=== PATIENT | female | born 1995 | race Caucasian/White ===

== ENCOUNTER 2016-09-04 20:09 | Emergency (ER) | payer OTHER ==
[~2016-09-04] VITALS: Ht 157.5 cm; Wt 66.0 kg
[2016-09-04 20:48] VITALS: Ht 157.5 cm; Wt 66.0 kg
[2016-09-04] MEDS ORDERED: ACETAMINOPHEN 325 MG TAB PO ONE (21:30)
--- NOTE | 2016-09-04 21:33 | ERD ---
ER Documentation Chief Complaint Date/Time DATE: 09/04/16 TIME: 21:27 Chief Complaint Stiff neck x3 days HPI 21-year-old healthy female presents with chief complaint of constant neck stiffness 3 days. She has associated discomfort with turning her neck to the right side, and noticed a sore throat today. She denies decreased range of motion, difficulty swallowing, drooling, shortness of breath, fever, cough, and trauma. She took Advil earlier this morning, without relief. She denies sick contacts or recent travel. ROS All systems reviewed and are negative except as per history of present illness. Medications Home Meds Active Scripts Acetaminophen* (Tylenol*) 325 Mg Tablet, 2 TAB PO Q6 Y for PAIN AND OR ELEVATED TEMP, #20 TAB Prov:Katie Palomo PA-C 09/04/16 Ibuprofen* (Motrin*) 600 Mg Tab, 600 MG PO Q6, #30 TAB Prov:Katie Palomo PA-C 09/04/16 Allergies Allergies: Coded Allergies: No Known Allergy (Unverified , 09/04/16) PMhx/Soc Medical and Surgical Hx: pt denies Medical Hx, pt denies Surgical Hx Hx Alcohol Use: No Hx Substance Use: No Hx Tobacco Use: No Smoking Status: Never smoker Physical Exam Vitals Vital Signs Date Time Temp Pulse Resp B/P Pulse Ox O2 Delivery O2 Flow Rate FiO2 09/04/16 20:48 100.2 112 18 134/83 100 Physical Exam GENERAL: Non-toxic. No apparent signs of distress. HEENT: Atraumatic. Bilateral eyes are PERRL EOM intact. Normal conjunctiva, no injection. No eyelid or lower eyelid swelling noted. Ears: Normal tympanic membrane, no erythema or bulging. No ear canal swelling. No ear discharge. Nose : no nasal discharge. Throat: Oropharynx normal. Tongue pink and moist. No tonsillar swelling or tonsillar exudates. No pooling of secretions. Uvula is midline. No trismus. No lymphadenopathy. NECK: No lymphadenopathy, no swelling, no meningismus LUNGS: Clear to auscultation. No accessory muscle use. No wheezing, no crackles. No signs or symptoms of respiratory distress. HEART: Regular rate and rhythm. No murmurs, clicks, rubs or gallops. BACK: No midline tenderness, no costovertebral tenderness. EXTREMITIES: No peripheral cyanosis or edema. No focal pain or notable trauma. Full range of motion. Good capillary refill. NEURO: The patient moves all 4 extremities with 5/5 strength. Cranial nerves are grossly intact. Normal mental status for age. Good muscle tone. SKIN: There is no apparent rash, petechiae, erythema or swelling. Good skin turgor. Results 24 hrs Current Medications Medications (Trade) Dose Ordered Sig/Cait Route PRN Reason Start Time Stop Time Status Last Admin Dose Admin Acetaminophen (Tylenol Tab) 650 mg ONCE ONCE PO 09/04/16 21:30 09/04/16 21:31 DC 09/04/16 21:50 Procedures/MDM Patient presented with complaint of neck stiffness only on her right side, she denied fever however her temp in triage was recorded as 100.2. She notes associated symptoms of sore throat that began earlier today. On exam she has no signs of meningismus, she appears in no acute distress, she has no other medical problems. She denies sick contacts or recent travel. She denies recent trauma. She has full range of motion in her neck. At this time I suspicion for meningitis is low, given the patient's physical and past medical history. However I ordered a rapid strep and influenza to rule these out as a cause of fever, which may be related or unrelated to her neck discomfort. On exam she had mild tonsillar erythema with no edema or exudate, she has no pooling of secretions or trismus. Uvula is midline. Patient given Tylenol for low-grade fever. Awaiting results of workup prior to further management. Rapid strep: Negative Influenza a and B: Negative Workup to results to patient, there is no need for antibiotics or antiviral treatment at this time. I explained that symptoms are likely due to musculoskeletal etiology. It is reassuring that she has no meningismus, has full range of motion in her neck, and only has pain with moving neck to the right side. Symptoms may be due to muscle strain as suggested use of NSAIDs and alternating between ice and heat packs. Sore throat and fever are likely unrelated to her neck pain, she may be showing early signs of viral pharyngitis due to tonsillar erythema. I suggested warm salt water gargles. I prescribed her Motrin and Tylenol. At this time of low suspicion for sepsis, meningitis, peritonsillar abscess, retropharyngeal abscess, strep pharyngitis, cervical fracture, and cord compression. Patient stable for discharge and outpatient management. Advised to follow-up with her PCP in 1-2 days. Departure Diagnosis: Primary Impression: Neck pain Additional Impression: Pharyngitis Pharyngitis/tonsillitis etiology: unspecified etiology Qualified Code: J02.9 - Pharyngitis, unspecified etiology Condition: Katie Flaherty PA-C Sep 04, 2016 21:33
[2016-09-04] MEDS ORDERED: IBUP-1542 PO (23:31)
[2016-09-04] MEDS ORDERED: ACET325T33 PO (23:31)
== END 2016-09-04 23:47 | disposition home or self-care (01) ==
LOC: FTE 20:09
DX: M54.2 Cervicalgia (principal); J02.9 Acute pharyngitis, unspecified
CPT/HCPCS: 87400; 87880; Z7610; 99283

== ENCOUNTER 2016-09-07 19:02 | Emergency (ER) | payer OTHER ==
[~2016-09-07] VITALS: Ht 157.5 cm; Wt 66.0 kg
[~2016-09-07 19:02] MED LIST: ACET325T33 PO; IBUP-1542 PO
[2016-09-07 19:16] VITALS: Ht 157.5 cm; Wt 66.0 kg
[2016-09-07] MEDS ORDERED: AMO500 PO (20:09)
[2016-09-07] MEDS ORDERED: ACET500C5 PO (20:09)
[2016-09-07] MEDS ORDERED: NPH10OT LEFT EAR (20:09)
--- NOTE | 2016-09-07 20:16 | ERD ---
ER Documentation Chief Complaint Date/Time DATE: 09/07/16 TIME: 20:13 Chief Complaint left ear pain x last night HPI 21-year-old female with a past medical history of recurrent ear infections presents to the ED complaining of left ear pain that started earlier today. Denies any use of Q-tips. States that she has been having a dry cough since 3 days ago. Denies any neck stiffness, neck pain, dysphagia, abdominal pain, nausea, vomiting, diarrhea, rashes, chest pain, wheezing, shortness of breath. Denies any recent traveling. Denies any recent swimming. ROS All systems reviewed and are negative except as per history of present illness. Medications Home Meds Active Scripts Neomycin/Polymyxin/Hydrocort* (Cortisporin* Otic) 10 Ml Susp, 4 DROP LEFT EAR QID for 7 Days, EA Prov:ANNETTE ROMANO PA-C 09/07/16 Acetaminophen* (Tylophen*) 500 Mg Capsule, 1 CAP PO Q6H Y for PAIN AND OR ELEVATED TEMP, #20 CAP Prov:ANNETTE ROMANO PA-C 09/07/16 Amoxicillin* (Amoxicillin*) 500 Mg Cap, 500 MG PO TID for 7 Days, CAP Prov:ANNETTE ROMANO PA-C 09/07/16 Acetaminophen* (Tylenol*) 325 Mg Tablet, 2 TAB PO Q6 Y for PAIN AND OR ELEVATED TEMP, #20 TAB Prov:Katie Palomo PA-C 09/04/16 Ibuprofen* (Motrin*) 600 Mg Tab, 600 MG PO Q6, #30 TAB Prov:Katie Palomo PA-C 09/04/16 Allergies Allergies: Coded Allergies: No Known Allergy (Unverified , 09/04/16) PMhx/Soc History of Surgery: No Anesthesia Reaction: No Hx Respiratory Disorders: No Hx Psychiatric Problems: No Hx Miscellaneous Medical Probl: No Hx Alcohol Use: No Hx Substance Use: No Hx Tobacco Use: No Smoking Status: Never smoker Physical Exam Vitals Vital Signs Date Time Temp Pulse Resp B/P Pulse Ox O2 Delivery O2 Flow Rate FiO2 09/07/16 19:16 97.6 93 18 129/82 98 Physical Exam Const: [id number], well-nourished. In no acute distress. Head: Atraumatic, normocephalic Eyes: Normal Conjunctiva without injection. No purulent discharge. PERRL. EOMI ENT: Normal external ear. Left tympanic membrane membrane with erythema and decreased light reflex. Tenderness palpation of the left tragus. No tenderness to palpation of the mastoid. Right tympanic membrane pearly priest without effusion or bulging. Nasal canal clear with normal turbinates. Moist oropharynx without tonsillar exudates. Non-erythematous pharynx. Uvula midline. No drooling. No trismus. Neck: Full range of motion. No meningismus. No cervical lymphadenopathy. Resp: Clear to auscultation bilaterally. No wheezing, rhonchi, rales, or crackles. No accessory muscle use. No retractions. Cardio: Regular rate and rhythm. No murmurs, rubs or gallops. Abd: Soft, non tender, non distended. Normal bowel sounds. No palpable masses. No rebound tenderness. No guarding. Skin: No petechiae or rashes Back: No midline tenderness. No CVA tenderness. Ext: No cyanosis, or edema. Neur: Awake and alert. Psych: Normal Mood and Affect Procedures/MDM This is a 21-year-old female with a past medical history of recurrent ear infections presents the ED complaining of ear pain that started last night. Patient is afebrile and nontoxic-appearing. Patient has normal vital signs. Patient's physical exam is consistent with otitis media and otitis externa. Patient has slight tenderness to palpation of the left tragus. Patient does not have tenderness to palpation of mastoid. Low suspicion for mastoiditis. Patient's physical exam include lungs which were clear to auscultation and a normal pulse oximetry. Patient is speaking in full sentences. There is a low suspicion for pneumonia, epiglottitis, croup, viral/strep pharyngitis, sinusitis , peritonsillar abscess, retropharyngeal abscess, meningitis, sepsis, acute abdomen or other emergent conditions. Discharge medications: Tylenol, Amoxicillin, Cortisporin Follow up with primary care physician in 1-2 days. Instructed patient to return to the ED sooner for any worsening symptoms. Patient's questions were answered. Patient understood and agreed with discharge plan. Patient discharged stable. Departure Diagnosis: Primary Impression: Otitis media Otitis media type: unspecified Laterality: left Chronicity: unspecified Qualified Code: H66.92 - Left otitis media, unspecified chronicity, unspecified otitis media type Additional Impression: Otitis externa Otitis externa type: unspecified type Laterality: left Chronicity: unspecified Qualified Code: H60.92 - Otitis externa of left ear, unspecified chronicity, unspecified type Condition: Stable Patient Instructions: Otitis Media, Abx Tx [Child], External Ear Infection ( Adult) Referrals: [facility] YOU HAVE RECEIVED A MEDICAL SCREENING EXAM AND THE RESULTS INDICATE THAT YOU DO NOT HAVE A CONDITION THAT REQUIRES URGENT TREATMENT IN THE EMERGENCY DEPARTMENT. FURTHER EVALUATION AND TREATMENT OF YOUR CONDITION CAN WAIT UNTIL YOU ARE SEEN IN YOUR DOCTORS OFFICE WITHIN THE NEXT 1-2 DAYS. IT IS YOUR RESPONSIBILITY TO MAKE AN APPOINTMENT FOR FOLOW-UP CARE. IF YOU HAVE A PRIMARY DOCTOR --you should call your primary doctor and schedule an appointment IF YOU DO NOT HAVE A PRIMARY DOCTOR YOU CAN CALL OUR PHYSICIAN REFERRAL HOTLINE AT IF YOU CAN NOT AFFORD TO SEE A PHYSICIAN YOU CAN CHOSE FROM THE FOLLOWING [facility] [address] [facility] [address] [facility] [facility] [address] [facility] [address] [facility] [address] [facility]. [facility]. [address] [facility]. [facility] YOU HAVE RECEIVED A MEDICAL SCREENING EXAM AND THE RESULTS INDICATE THAT YOU DO NOT HAVE A CONDITION THAT REQUIRES URGENT TREATMENT IN THE EMERGENCY DEPARTMENT. FURTHER EVALUATION AND TREATMENT OF YOUR CONDITION CAN WAIT UNTIL YOU ARE SEEN IN YOUR DOCTORS OFFICE WITHIN THE NEXT 1-2 DAYS. IT IS YOUR RESPONSIBILITY TO MAKE AN APPOINTMENT FOR FOLOW-UP CARE. IF YOU HAVE A PRIMARY DOCTOR --you should call your primary doctor and schedule and appointment IF YOU DO NOT HAVE A PRIMARY DOCTOR YOU CAN CALL OUR PHYSICIAN REFERRAL HOTLINE AT . IF YOU CAN NOT AFFORD TO SEE A PHYSICIAN YOU CAN CHOSE FROM THE FOLLOWING [facility] INSTITUTIONS: [facility] [id number] [place] [id number] [facility] [address] [place] [address] [facility] [address] [place] [address] [facility] URGENT CARE/SPECIALTIES Additional Instructions: FOLLOW UP WITH YOUR PRIMARY CARE PHYSICIAN in 2-3 days.Return to this facility if you are not improving as expected. ANNETTE ROMANO PA-C Sep 07, 2016 20:16
== END 2016-09-07 20:49 | disposition home or self-care (01) ==
LOC: FTE 19:02
DX: H66.92 Otitis media, unspecified, left ear (principal); H60.92 Unspecified otitis externa, left ear
CPT/HCPCS: 99283

== ENCOUNTER 2017-06-10 14:05 | Emergency (ER) | END 2017-06-10 20:01 | disposition home or self-care (01) ==